=== PATIENT | male | born 1965 | race Caucasian/White ===

== ENCOUNTER 2023-12-27 08:56 | Outpatient (REF) | payer OTHER, SELFPAY | END 2023-12-27 08:57 | disposition home or self-care (01) | LOC: HO.HOSX 08:56 | PROVIDERS: Visit Provider Physician Assistant | DX: Z13.89 Encounter for screening for other disorder (principal) ==

== ENCOUNTER 2024-01-26 09:23 | Outpatient (REF) | payer OTHER, SELFPAY ==
--- NOTE | ~2024-01-26 | XR_ITS ---
EXAMINATION: XR SHOULDER LEFT CLINICAL INFORMATION: Pain in unspecified shoulder M25.519. COMPARISON: None available. TECHNIQUE: Two views of the left shoulder. FINDINGS: Normal bone mineralization. No fracture, dislocation, or suspicious bone lesion. Normal alignment. Subacromial space is preserved. Mild to moderate osteoarthritis in the glenohumeral joint with small undersurface spurs. Mild to moderate osteoarthritis in the AC joint with minimal undersurface and more predominant superior surface spurring. No outlet impingement. Remainder of the bony and soft tissue structures appear normal. XR/XR shoulder LT min 2V IMPRESSION: 1. No acute bony abnormalities. 2. Mild to moderate osteoarthrosis of the glenohumeral joint and AC joint. Electronically signed by: Paul Padron MD 02/10/2024 08:40 AM YAMILKA
== END 2024-01-26 09:24 | disposition home or self-care (01) ==
LOC: HO.HOSX 09:23
PROVIDERS: Visit Provider Orthopaedic Surgery
DX: M25.512 Pain in left shoulder (principal)
CPT/HCPCS: 73030; 99202

== ENCOUNTER 2024-01-26 11:08 | Outpatient (AMB) | payer OTHER, SELFPAY ==
--- NOTE | 2024-01-26 11:21 | MHC.OFFVIS ---
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 The patient describes his pain as sharp in nature. The patient states that he has been doing a fair amount of heavy lifting with his left arm because he has been recovering from right shoulder surgery performed by another provider earlier this year. He has had cortisone injections in the past which gave him minimal relief. He has also tried Tylenol and ibuprofen which gave him only mild relief. He has done physical therapy which aggravated his pain. Allergies No Known Allergies Allergy (Verified 01/26/24 11:22) Medication List - Last Reconciled 01/26/24 by Brody Escobar MD ibuprofen 800 mg PO Q12H PRN PFSH Social History (Updated 01/26/24 @ 11:24 by MANJULA Manrique) Alcohol intake: never Patient Tobacco Use Status: Former Tobacco user Current occupational status: unemployed Physical Exam Vital Signs: BMI result Body Mass Index 29.1 Const Other: Well-nourished well-developed very friendly male awake alert and oriented x3 in no acute distress Extrem Other: Bilateral upper extremity examination shows good capillary refill, no skin lesions noted, normal sensation light touch Left shoulder examination shows slightly decreased range of motion when compared to his right shoulder, 4+ out of 5 strength with supraspinatus testing, positive impingement signs, tenderness over his acromioclavicular joint, no instability Results Reviewed Results Reviewed: X-rays of the patient's left shoulder show severe acromioclavicular joint narrowing, a type 2 acromion, no acute bony abnormalities Assessment & Plan Assessment & Plan (1) Left shoulder pain: Code(s): M25.512 - Pain in left shoulder Category: Medical Plan Mr. Ménedz presents with progressively worsening left shoulder pain and weakness due to impingement syndrome and possible rotator cuff tearing. Thus, I will send the patient for an MRI of his left shoulder for further evaluation. I will see him back once the MRI is completed to discuss the findings and treatment options. Feel free to call me at any time should questions regarding his orthopedic management arise. Thank you very much for asking me to see this very friendly gentleman. I spent 22 minutes in reviewing the patient's records and imaging studies, seeing the patient and documenting in the medical record. Orders: Orders XR shoulder LT min 2V Today M25.519 - Pain in unspecified shoulder MR shoulder LT wo con Today M25.512 - Pain in left shoulder Coding Level of Care Code New Pt Level 3 (07567) Complex EM visit Add On G2211 Diagnoses Left shoulder pain M25.512
[2024-01-26 11:22] VITALS: BMI 29.1
--- OUTSIDE RECORDS SUMMARY | 2024-02-01 01:50 | XMS_ITS | Continuity of Care Document ---
Author Organization [facility] Darlene elizabeth Office Address [address] [place] [address] Care Team Providers Care Steamtable Worker Name Role Phone PIA BRANTLEY Primary Care Provider RUSH RAYO Reservations And Ticketing Agent Assessment No assessment recorded. Plan of Treatment Reminders Order Date Submit Date Provider Last Modified By Organization Details Last Modified Time Details Appointments WC Post-Op 2023 11:40A M BANDAR GALLARDO MD Not available Not available Not available Lab None recorded. Referral physical therapist referral - S/P Right Shoulder Arthrosco py 07/27/232023 1105 024 [email or web address] [facility], [address] [place] [address], [id number], 01/02/2024 11:51:46 Procedures None recorded. Surgeries None recorded. Imaging None recorded. Medication Orders None recorded. Patient TargetsNo targets recorded. Patient InstructionsNo instructions recorded. Reason for Referral Physical Therapist Referral for Shoulder pain POST OP REHAB S/P Right Shoulder Arthroscopy 07/27/23 IF BICEP TENODESIS: NO ACTIVE ELBOW FLEXION X 3WEEKS NO RESISITED ELBOW FLEXION X 8 WEEKS Referring Physician: Bandar Gallardo, Orthopedic Surgery, Encounter Date: 12/27/2023 Procedures Surgical History Date Name Laterality Status Provider Name and Address Organization Details Recorded Time 4 Orthopaedic Surgery completed Ellie Gonzales [facility] 08/09/2023 09:21:38 9 Orthopaedic Surgery completed Ellie Gonzales [facility] 12/21/2022 09:26:02 Imaging Results None recorded. Procedure Notes None recorded. Medical Equipment None Reported. Allergies No known drug allergies Medications Name Sig Start Date Stop Date Status Note LastModified by Organization Details LastModified Time ibuprofen 800 mg tablet TAKE 1 TABLET TWICE A DAY BY ORAL ROUTE NEEDED. active Not Available Not Available No t Available Medrol (Julio Cesar) 4 mg tablets in a dose pack 1 pack use as directed 2022 active Not Available Not Available Not Avai lable Kenalog 40 mg/mL suspensio n for injection Take 2 mL by injectio n route. 2023 active US Guided Not Available Not Available Not Available Percocet 5 mg-325 mg tablet 1 tabs PO Q 4-6 hours prn pain 09/05 completed POST OP PAIN MEDICATI ON Not Available Not Available Not Available naproxen active Not Available Not Avai lable Not Available Tylenol active prn Not Available Not Avail able Not Available Vitals Date Recorded Body height Provider Name an d Address Organization Details Last Updated DateTime 12/27/2023 175.26 cm Sandra Kings [facility] 12/27/2023 11:31:04 Social History Question Answer Notes LastModified by Organizat ion Details LastModified Time Tobacco Smoking Status Never Smoker [facility] 12/21/2022 09:25:14 What Is Your Level Of Alcohol Consumption? None Information not available 10/18/2023 Do You Or Have You Ever Used E-cigarettes Or Vape? 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 Information not available 12/21/2022 Do You Or Have You Ever Used Smokeless Tobacco? [id number] Information not available 12/21/2022 Sex: Unknown Functional Status Question Answer Note LastModified by Organization D etails LastModified Time What is your exercise level? None Information not available 10/18/2023 Mental Status None recorded. Family History Relationship Description Onset Age of this Age Resolved Age Notes LastModified by Organization Details LastModified Time Father No current problems or disability [email or web address] Not available 10/17 13:07:25 Mother No current problems or disability [email or web address] Not available 10/17 13:07:26 Medical History Condition Response HIV or AIDS N High Blood Pressure N Irregular Heartbeat N MRSA N Any Other Significant Medical Issues N Weight Gain / Loss N Hearing Loss N Angina, Heart Failure or Attack N Night Sweats N Seizures / Epilepsy N Osteoarthritis / Rheumatoid arthritis / Other N Cancer N Stroke N Ulcer / Stomach Bleeding / Indigestion N Visual Loss or Glaucoma N Blood Clots / Phlebitis N Heart Problems N Depression or Anxiety N Emphysema / Chronic Bronchitis N Reaction to General/Local Anesthesia N Hepatitis / Jaundice N Kidney / Bladder Infections N Diabetes N Bleeding Disorder N Chemical Dependency / Alcoholism N Psoriasis / Skin Rash N Thyroid Disorder N Heart Disease N Asthma / Shortness of Breath / Sleep [employer] (please specify) N Pulmonary Embolism N Past Encounters Encounter ID Performer Location Encounter Start Date Encounter Closed Date Diagnosis/Indication Diagnosis SNOMED-CT Code Diagnosis ICD10 Code [id number] BANDAR GALLARDO MD [place] [facility] [address] [place] [id number] 12/27/2023 10:08:36 12/27/2023 12:38:24 Impingement syndrome of right shoulder region 3303366974 86368 M75.41 Bursitis o f right shoulder 9155428761 36387 M75.51 Shoulder pain 69441532 M 25.013 [id number] ROLF HYMAN [place] [facility] [address] [place] [address] 12/27/2023 12:34:05 12/27/2023 13:37:39 Pain of right shoulder joint 7006405609 9985682 M25.511 Health Concerns Section Related Observation LastModified by Organization Detai ls LastModified Time None Recorded Concern Status LastModified by Organization Details LastModified Time None Recorded Payers Encounter Date Sequence Insurance Name Policy Number Policy Boyce Covered Member ID Boyce Member ID Guarantor Name 12/27/2023 Sarbari Unknown Marito Méndez Notes Date Note Type Note Provider Name and Address Organization Details Recorded Time 12/27/2023 text/html Patients present s today for RIGHT shoulder injection. I confirmed that the patient does not have a history of prior adverse reactions, active infections, or relevant allergies. There was no erythema or warmth, and the skin was clear. After discussion of the risks including, but not limited to infection, localized soreness and swelling, reaction to medications, the patient consented to proceeding with the injection.Under sterile conditions with the use of alcohol and Betadine prep on the RIGHT shoulder and ethyl chloride spray on the skin, I applied sterile ultrasound gel and utilized the [employer] [facility] to ensure accurate needle placement. Topical anesthesia was achieved by use of ethyl chloride spray, followed by the placement of 2 cc of Kenalog, and 2 cc of 2% lidocaine into the glenohumeral joint and subacromial space without incident. Ultrasound images were scanned into the patient's chart. The injection was completed without complication and a Band-Aid was applied. The patient tolerated the procedure well and was instructed to avoid strenuous activity for the next 24-48 hours and use ice, NSAIDs, or Tylenol for pain as needed. ROLF HYMAN [address] [place] [address], [phone], [facility] 12/27/2023 15:36:42 12/27/2023 text/html Bill comes in today. He has been making good progress to about 2 weeks ago. The pain increased in severity in the shoulder. For some reason, he was not getting physical therapy, so that is the problem. Clinically, he what appears to be some recurrent bursitis so let us do a cortisone shot, wait a week, back in physical therapy to work on posture and strength, out of work. Recheck in 6 weeks. BANDAR GALLARDO MD [address] [place] [address], [phone], [facility] 12/28/2023 12:07:03
--- OUTSIDE RECORDS SUMMARY | 2024-02-01 01:50 | XMS_ITS | Data Portability ---
Author Organization [place] [facility] Address [address] [place] [address] Care Team Providers Care Analysis Consultant Name Role Phone PIA BRANTLEY Primary Care Provider [phone] PERRI BEVERLY Photogrammetric Tech [phone] Assessment No assessment recorded. Plan of Treatment Reminders Order Date Submit Date Provider Last Modified By Organization Details Last Modified Time Details Appointments Post-Op 2023 11:40A M BANDAR GALLARDO MD Not available Not available Not available Lab None recorded. Referral physical therapist referral - S/P RT Shoulder Arthrosco py, SAD 2023 024 [email or web address] [facility], [address] [place] [address], [id number], 09/07/2023 12:11:51 physical therapist referral - S/P Shoulder Arthrosco py-Right Shoulder 2023 024 [email or web address] [facility], [address] [place] [address], [address], 10/19/2023 08:25:43 physical therapist referral - S/P Shoulder Arthrosco py 2023 024 [email or web address] Not available 11/19/2023 12:14:13 physical therapist referral - S/P Shoulder Arthrosco py-Right Shoulder 2023 024 [email or web address] [facility], [address] [place] [address], [id number], 11/16/2023 10:55:02 physical therapist referral - S/P Right Shoulder Arthrosco py 07/27/2320232 024 [email or web address] [facility], [address] [facility], [place], [address], 01/02/2024 11:51:46 Procedures None recorded. Surgeries None recorded. Imaging None recorded. Medication Orders Kenalog 40 mg/mL suspensio n for injection [facility]23 [id number], [address] [place], [address], 12/27/2023 17:13:17 Patient TargetsNo targets recorded. Patient InstructionsNo instructions recorded. Reason for Referral Physical Therapist Referral for Impingement syndrome of right shoulder region POST OP REHAB S/P RT Shoulder Arthroscopy, SAD IF BICEP TENODESIS: NO ACTIVE ELBOW FLEXION X 3WEEKS NO RESISITED ELBOW FLEXION X 8 WEEKS Referring Physician: Bandar Gallardo, Orthopedic Surgery, Encounter Date: 09/06/2023 Physical Therapist Referral for Bone spur of right shoulder POST OP REHAB S/P Shoulder Arthroscopy IF BICEP TENODESIS: NO ACTIVE ELBOW FLEXION X 3WEEKS NO RESISITED ELBOW FLEXION X 8 WEEKS Referring Physician: Bandar Gallardo, Orthopedic Surgery, Encounter Date: 10/18/2023 Physical Therapist Referral for Bursitis of right shoulder POST OP REHAB S/P Shoulder Arthroscopy-Right Shoulder IF BICEP TENODESIS: NO ACTIVE ELBOW FLEXION X 3WEEKS NO RESISITED ELBOW FLEXION X 8 WEEKS Referring Physician: Bandar Gallardo, Orthopedic Surgery, Encounter Date: 10/18/2023 Physical Therapist Referral for Bone spur of right shoulder POST OP REHAB S/P Shoulder Arthroscopy-Right Shoulder IF BICEP TENODESIS: NO ACTIVE ELBOW FLEXION X 3WEEKS NO RESISITED ELBOW FLEXION X 8 WEEKS Referring Physician: Bandar Gallardo, Orthopedic Surgery, Encounter Date: 11/15/2023 Physical Therapist Referral for Shoulder pain POST OP REHAB S/P Right Shoulder Arthroscopy 07/27/23 IF BICEP TENODESIS: NO ACTIVE ELBOW FLEXION X 3WEEKS NO RESISITED ELBOW FLEXION X 8 WEEKS Referring Physician: Bandar Gallardo, Orthopedic Surgery, Encounter Date: 12/27/2023 Procedures Surgical History Date Name Laterality Status Provider Name and Address Organization Details Recorded Time Orthopaedic Surgery completed Ellie Gonzales [facility] 08/09/2023 09:21:38 9 Orthopaedic Surgery completed Ellie Gonzales [facility] 12/21/2022 09:26:02 Imaging [...] d Address Organization Details Last Updated DateTime 09/06/2023 175.26 cm Jerad Parson [facility] 09/06/2023 11:15:02 Date Recorded Body height Body mass index (BMI) Body weight Provider Name and Address Organization Details Last Updated DateTime 10/18/2023 175.26 cm 30.9 kg/m2 61749.81 g Sandra [facility] 10/18/2023 13:04:57 Date Recorded Body height Provider Name an d Address Organization Details Last Updated DateTime 11/15/2023 175.26 cm Sandra Ku [facility] 11/15/2023 09:54:05 Date Recorded Body height Provider Name an d Address Organization Details Last Updated DateTime 12/27/2023 175.26 cm Sandra Ku [facility] 12/27/2023 11:31:04 Social History Question Answer Notes LastModified by Organizat ion Details LastModified Time Tobacco Smoking Status Never Smoker Ellie Gonzales [facility] 12/21/2022 09:25:14 What Is Your Level Of Alcohol Consumption? None Information not available 10/18/2023 Do You Or Have You Ever Used E-cigarettes Or Vape? 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 Information not available 12/21/2022 Do You Or Have You Ever Used Smokeless Tobacco? [id number] Information not available 12/21/2022 Sex: Unknown Functional [...] available 10/17 13:07:26 Medical History Condition Response Blood Clots / Phlebitis N HIV or AIDS N Heart Problems N High Blood Pressure N Depression or Anxiety N Irregular Heartbeat N MRSA N Emphysema / Chronic Bronchitis N Any Other Significant Medical Issues N Reaction to General/Local Anesthesia N Weight Gain / Loss N Hepatitis / Jaundice N Kidney / Bladder Infections N Diabetes N Bleeding Disorder N Hearing Loss N Angina, Heart Failure or Attack N Seizures / Epilepsy N Night Sweats N Osteoarthritis / Rheumatoid arthritis / Other N Cancer N Stroke N Chemical Dependency / Alcoholism N Ulcer / Stomach Bleeding / Indigestion N Visual Loss or Glaucoma N Thyroid Disorder N Psoriasis / Skin Rash N Heart Disease N Pulmonary Embolism N Asthma / Shortness of Breath / Sleep [employer] Sty[employer] ea (please specify) N Past Encounters Encounter ID Performer Location Encounter Start Date Encounter Closed Date Diagnosis/Indication Diagnosis SNOMED-CT Code Diagnosis ICD10 Code [id number] [facility] [address] [address] 12/21/2022 07:59:29 12/21/2022 10:33:56 Traumatic rupture of right glenoid labrum 1087690030 3443269 S43.431A Shoulder pain 75016202 M 25.338 [id number] [place] [facility] [address] [address] 03/08/2023 08:44:47 03/08/2023 12:03:43 Shoulder pain 76806833 M25.519 Bursitis o f right shoulder 5510381401 21755 M75.51 Bone spur of right shoulder 0707636618 31798 M25.196 [id number] BANDRA GALLARDO MD [address] [address] 03/15/2023 16:21:17 03/15/2023 17:53:30 Shoulder pain 70552309 M25.450 [id number] BANDAR GALLARDO MD [place] [facility] [address] [address] 04/26/2023 07:57:10 04/26/2023 10:38:09 Bursitis of right shoulder 3348076723 73072 M75.51 Impingemen t syndrome of right shoulder region 6728015549 57378 M75.41 Pain of ri ght shoulder joint 7196255814 1450910 M25.383 [id number] ROLF HYMAN [place] [facility] [address] [address] 04/26/2023 10:30:08 04/26/2023 11:08:52 Bursitis of right shoulder 0067499299 48147 M75.51 Bone spur of right shoulder 7229112012 00962 M25.711 Impingemen t syndrome of right shoulder region 9788716441 01657 M75.41 Pain of ri ght shoulder joint 2347104201 2462130 M25.511 Rupture of rotator cuff of right shoulder 7561713488 1861224 M75.605 [id number] ROLF HYMAN [place] [facility] [address] [address] 06/28/2023 09:15:23 06/28/2023 10:41:04 Bursitis of right shoulder 1962855156 56881 M75.51 Bone spur of right shoulder 8881783395 62185 M25.711 Impingemen t syndrome of right shoulder region 6401956414 09636 M75.41 Pain of ri ght shoulder joint 0110116204 4685529 M25.519 [id number] ROLF HYMAN [place] [facility] [address] [place] [address] 08/09/2023 09:18:46 08/09/2023 12:03:38 Shoulder pain 18995214 M25.519 Impingemen t syndrome of right shoulder region 0775878883 30934 M75.41 Bursitis o f right shoulder 1788731780 68746 M75.51 [id number] BANDAR GALLARDO MD [place] [facility] [address] [place] [address] 09/06/2023 10:02:18 09/06/2023 11:36:21 Impingement syndrome of right shoulder region 2670928754 17384 M75.41 Shoulder pain 37987771 M 25.511 Bone spur of right shoulder 0391385158 21327 M25.711 Bursitis o f right shoulder 6687454904 04100 M75.51 Pain of ri ght shoulder joint 9502609819 7647773 M25.563 [id number] BANDAR GALLARDO MD [place] [facility] [address] [facility] [address] 10/18/2023 12:45:01 10/18/2023 13:27:49 Bursitis of right shoulder 6293087297 62103 M75.51 Bone spur of right shoulder 2178748589 96044 M25.711 Impingemen t syndrome of right shoulder region 5970709045 96444 M75.41 Pain of ri ght shoulder joint 3707444898 7371455 M25.511 Shoulder pain 36080698 M 25.396 [id number] BANDAR GALLARDO MD [place] [facility] [address] [facility] [address] 11/15/2023 09:36:19 11/15/2023 10:24:19 Bursitis of right shoulder 0660144402 78232 M75.51 Bone spur of right shoulder 7526873359 58941 M25.711 Impingemen t syndrome of right shoulder region 5862089051 25365 M75.41 Pain of ri ght shoulder joint 4661174636 3528593 M25.035 [id number] BANDAR GALLARDO MD [place] [facility] [address] [facility] [place] [address] 12/27/2023 10:08:36 12/27/2023 12:38:24 Impingement syndrome of right shoulder region 1173992240 51908 M75.41 Bursitis o f right shoulder 7197021414 91832 M75.51 Shoulder pain 39805458 M 25.472 [id number] ROLF HYMAN [place] [facility] [address] [facility] [place] [address] 12/27/2023 12:34:05 12/27/2023 13:37:39 Pain of right shoulder joint 6904688594 5281555 M25.511 Health Concerns Section Related Observation LastModified by Organization Detai ls LastModified Time None Recorded Concern Status LastModified by Organization Details LastModified Time None Recorded Advance Directives Directive None Recorded Payers Encounter Date Sequence Insurance Name Policy Number Policy Boyce Covered Member ID Boyce Member ID Guarantor Name 09/06/2023 [employer] Unknown Marito SpecifiedBybrent 10/18/2023 [employer] Unknown Marito Méndez 11/15/2023 [employer] Unknown Marito Méndez 12/27/2023 [employer] Unknown Marito SpecifiedBybrent 12/27/2023 [employer] Unknown Marito Méndez Notes Date Note Type Note Provider Name and Address Organization Details Recorded Time 09/06/2023 text/html Marito comes in today, he is doing okay. He has a little bit of pain when he elevates, but his motion is actually fairly good. He has not done any strengthening yet, so he is going to ways to go. He also has some rhomboid pain, so let us give him into PT, modalities, massage and strengthening and I will recheck him in 6 weeks, he is out of work. BANDAR GALLARDO MD [address] [place] [address], [place], [phone], [facility] 09/07/2023 12:10:06 10/18/2023 text/html Marito comes in today doing okay. ??Motion is improving. ??Strength is still lacking here, so he still has ways to go. ?? He has a very difficult job, so let us continue physical therapy, out of work. ??Recheck in 5 weeks. BANDAR GALLARDO MD [address] [place] [address], [phone], [facility] 11/10/2023 17:01:55 11/15/2023 text/html Patient presents status post decompression in July. He is having issues with routine. He is out of work. On exam he has 140 and elevation, impingement positive impingement test decent power neurovascular is intact. He needs to continue doing PT 1 or 2 times a week he is out of work we will see him back in 6 weeks BANDAR GALLARDO MD [address] [place] [address], [phone], [facility] 11/16/2023 12:53:40 12/27/2023 text/html Patients present s today for [...] applied sterile ultrasound gel and utilized the [email or web address] Ultrasound to ensure accurate needle placement. Topical [...] Tylenol for pain as needed. ROLF HYMAN [address] [facility], [place], [address], [facility] 12/27/2023 15:36:42 12/27/2023 text/html [...] Recheck in 6 weeks. BANDAR GALLARDO MD [address] [place] [address], [phone], [facility] 12/28/2023 12:07:03
--- OUTSIDE RECORDS SUMMARY | 2024-02-01 01:50 | XMS_ITS | Continuity of Care Document ---
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 Plan of Treatment Reminders Order Date Submit Date Provider Last Modified By Organization Details Last Modified Time Details Appointments WC Post-Op 2023 11:40A M BANDAR GALLARDO MD Not available Not available Not available Lab None recorded. Referral physical therapist referral - S/P Shoulder Arthrosco py-Right Shoulder 2023 0924 024 [email or web address] [facility], [address] [place] [address], [id number], 11/16/2023 10:55:02 Procedures None recorded. Surgeries None recorded. Imaging None recorded. Medication Orders None recorded. Patient TargetsNo targets recorded. Patient InstructionsNo instructions recorded. Reason for Referral Physical Therapist Referral for Bone spur of right shoulder POST OP REHAB S/P Shoulder Arthroscopy-Right Shoulder IF BICEP TENODESIS: NO ACTIVE ELBOW FLEXION X 3WEEKS NO RESISITED ELBOW FLEXION X 8 WEEKS Referring Physician: Bandar Gallardo, Orthopedic Surgery, Encounter Date: 11/15/2023 Procedures Surgical History Date Name Laterality Status Provider Name and Address Organization Details Recorded Time 4 Orthopaedic Surgery completed Ellie Gonzales [facility] 08/09/2023 09:21:38 9 Orthopaedic Surgery completed Ellie Gonzales [facility] 12/21/2022 09:26:02 Imaging [...] Updated DateTime 11/15/2023 175.26 cm Sandra Ku [facility] 11/15/2023 09:54:05 Social History Question Answer Notes LastModified by Organizat ion Details LastModified Time Tobacco Smoking Status [facility] 12/21/2022 09:25:14 What Is Your Level Of Alcohol Consumption? None Information not available 10/18/2023 Do You Or Have You Ever Used E-cigarettes Or Vape? Never Used Electronic Cigarettes Information not available 12/21/2022 What Is Your Occupation? [employer]. Information not available 12/21/2022 Do You Or Have You Ever Used Smokeless Tobacco? [id number] Information not available 12/21/2022 Sex: Unknown Functional [...] Asthma / Shortness of Breath / Sleep Proc Tech ea (please specify) N Past Encounters Encounter ID Performer Location Encounter Start Date Encounter Closed Date Diagnosis/Indication Diagnosis SNOMED-CT Code Diagnosis ICD10 Code [id number] BANDAR GALLARDO MD [place] [facility] [place] [address] [address] 10/18/2023 12:45:01 10/18/2023 13:27:49 Bursitis of right shoulder [id number] 42658 M75.51 Bone spur of right shoulder 0717632705 70058 M25.711 Impingemen t syndrome of right shoulder region 8618622395 59096 M75.41 Pain of ri ght shoulder joint 9379645676 3330507 M25.511 Shoulder pain 43737880 M 25.884 [id number] BANDAR GALLARDO MD [place] [facility] [facility] [employer] [place] [address] [address] 11/15/2023 09:36:19 11/15/2023 10:24:19 Bursitis of right shoulder [id number] 76752 M75.51 Bone spur of right shoulder 0526805190 87879 M25.711 Impingemen t syndrome of right shoulder region 4101877477 23406 M75.41 Pain of ri ght shoulder joint 5390233893 8026654 M25.511 Health Concerns Section Related Observation LastModified by Organization Detai ls LastModified Time None Recorded Concern Status LastModified by Organization Details LastModified Time None Recorded Payers Encounter Date Sequence Insurance Name Policy Number Policy Boyce Covered Member ID Boyce Member ID Guarantor Name 11/15/2023 [employer] Unknown Marito Honey Notes Date Note Type Note Provider Name and Address Organization Details Recorded Time 11/15/2023 text/html Patient presents status post decompression [...] back in 6 weeks BANDAR GALLARDO MD [address] [place] [address], [phone], [facility] 11/16/2023 12:53:40
--- OUTSIDE RECORDS SUMMARY | 2024-02-01 01:50 | XMS_ITS | Continuity of Care Document ---
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 Plan of Treatment Reminders Order Date Submit Date Provider Last Modified By Organization Details Last Modified Time Details Appointments WC Post-Op 2023 11:40A M REBEKA LAM MD Not available Not available Not available Lab None recorded. Referral None recorded. Procedures None recorded. Surgeries None recorded. Imaging None recorded. Medication Orders Kenalog 40 mg/mL suspensio n for injection [facility]23 [id number], [address] [facility], [place], [address], 12/27/2023 17:13:17 Patient TargetsNo targets recorded. Patient InstructionsNo instructions recorded. Reason for Referral None Reported. Procedures Surgical History Date Name Laterality Status Provider Name and Address Organization Details Recorded Time 4 Orthopaedic Surgery completed Ellie Gonzales [facility] 08/09/2023 09:21:38 9 Orthopaedic Surgery completed Ellie Gonzales [facility] 12/21/2022 09:26:02 [...] Updated DateTime 12/27/2023 175.26 cm Sandra Ku [facility] 12/27/2023 11:31:04 Social History Question Answer Notes LastModified by Organizat ion Details LastModified Time Tobacco Smoking Status Never Smoker [facility] 12/21/2022 09:25:14 What Is Your Level Of Alcohol Consumption? None Information not available 10/18/2023 Do You Or Have You Ever Used E-cigarettes Or Vape? 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 Information not available 12/21/2022 Do You Or Have You Ever Used Smokeless Tobacco? [id number] Information not available 12/21/2022 Sex: Unknown Functional [...] Disorder N Chemical Dependency / Alcoholism N Thyroid Disorder N Psoriasis / Skin Rash N Heart Disease N Pulmonary Embolism N Asthma / Shortness of Breath / Sleep Concrete Block Mason ea (please specify) N Past Encounters Encounter ID Performer Location Encounter Start Date Encounter Closed Date Diagnosis/Indication Diagnosis SNOMED-CT Code Diagnosis ICD10 Code [id number] REBEKA LAM MD [place] [facility] [address] [facility] [place] [address] 12/27/2023 10:08:36 12/27/2023 12:38:24 Impingement syndrome of right shoulder region 8751231852 22944 M75.41 Bursitis o f right shoulder 3056814391 54290 M75.51 Shoulder pain 51997626 M 25.387 [id number] ROLF HYMAN [place] [facility] [address] [place] [address] 12/27/2023 12:34:05 12/27/2023 13:37:39 Pain of right shoulder joint 3955153808 4963355 M25.511 Health Concerns Section Related Observation LastModified by Organization Detai ls LastModified Time None Recorded Concern Status LastModified by Organization Details LastModified Time None Recorded Payers Encounter Date Sequence Insurance Name Policy Number Policy Boyce Covered Member ID Boyce Member ID Guarantor Name 12/27/2023 [employer] Unknown Marito Méndez Notes Date Note Type [...] applied sterile ultrasound gel and utilized the [employer] Ul[employer]ound to ensure accurate needle placement. Topical [...] Tylenol for pain as needed. ROLF HYMAN [address] [place] [address], [phone], [facility] 12/27/2023 15:36:42 12/27/2023 [...] out of work. Recheck in 6 weeks. REBEKA LAM MD [address] [place] [address], [phone], [facility] 12/28/2023 12:07:03
== END 2024-01-26 11:48 | disposition home or self-care (01) ==
PROVIDERS: PCP Internal Medicine; Visit Provider Orthopaedic Surgery
DX: M25.512 Pain in left shoulder (principal)
CPT/HCPCS: 99203; G2211

== ENCOUNTER → 2024-01-26 11:11 | Outpatient (BNV) | payer OTHER, SELFPAY | PROVIDERS: Visit Provider Radiology Diagnostic Radiology | DX: M25.511 Pain in right shoulder (principal); M19.011 Primary osteoarthritis, right shoulder | CPT/HCPCS: 73030 ==

== ENCOUNTER 2024-11-28 13:04 | Outpatient (AMB) | payer MEDICAID, SELFPAY ==
--- NOTE | 2024-11-28 13:09 | MHC.OFFVIS ---
Intake Visit Reasons: Elevated PSA Intake Note: New Patient is present for elevated PSA Urology Rx:none Blood Thinners:none Imaging completed: none Labs done 03/20/24 : Total PSA 5.2 & 10/01/24 Total PSA 4.2 System Archive Analyst Required: No Accompanied by: Self / Same As Patient Allergies No Known Allergies Allergy (Verified 11/28/24 13:14) HPI Comments Details: Marito is a pleasant male. He is a patient of Dr. Coats. He is seen for the following urologic conditions - elevated PSA - lower urinary tract symptoms Trial dutasteride Bladder ultrasound 4 month follow-up Elevated PSA PSA - March 17 total 5.2 10% free, October 15 4.2 14% free Family history of prostate cancer - uncle maternal Lower urinary tract symptoms Primarily obstructive in nature Weakness of stream Nocturia Progressive over past few years PFS Social History (Updated 01/26/24 @ 11:24 by MANJULA Manrique) Alcohol intake: never Patient Tobacco Use Status: Former Tobacco user Current occupational status: unemployed Review of Systems Const Denies chills and Denies fever(s) Card Reports no additional complaints and Denies syncope Resp Denies cough GI Denies abdominal pain and Denies heartburn Reports as per HPI and Denies change in libido Neuro Denies syncope Psych Denies change in libido Endo Denies change in libido Physical Exam Const General: cooperative, healthy appearing, comfortable and no acute distress Orientation/consciousness: patient oriented x3 HEENT Face and sinus: Yes normal facial exam Mouth: moist mucous membranes Neck Neck: Yes normal visual inspection, Yes full ROM and Yes trachea midline Chest Chest palpation & inspection: normal inspection of the chest Resp Effort & Inspection: normal respiratory effort, able to speak in complete sentences and no respiratory distress GI Inspection: Yes normal to inspection Back/Spine/Pelvis Cervical Spine: normal cervical lordosis Thoracic/Lumbar Spine: thoracic and lumbar spine normal to inspection Skin General skin exam: no rashes or lesions noted Neuro General: patient oriented x3, gait normal, tone normal and moves all extremities Extrem General: Yes normal to inspection and Yes capillary refill normal Assessment & Plan Assessment & Plan (1) Elevated PSA: Code(s): R97.20 - Elevated prostate specific antigen [PSA] Category: Medical (2) Bladder outlet obstruction: Code(s): N32.0 - Bladder-neck obstruction Category: Medical (3) Nocturia associated with benign prostatic hyperplasia: Code(s): N40.1 - Benign prostatic hyperplasia with lower urinary tract symptoms; R35.1 - Nocturia Category: Medical Plan Four month follow-up PSA Bladder ultrasound Orders: Orders PSA,Total (Free>4and<10) 4 Months R97.20 - Elevated prostate specific antigen [PSA] US bladder Today R97.20 - Elevated prostate specific antigen [PSA] Medications: New dutasteride 0.5 mg PO DAILY 90 caps 1RF 90 days R97.20 - Elevated prostate specific antigen [PSA] Patient Instructions: This note is constructed using voice recognition software. While every effort has been made to ensure accuracy medical assembly errors may have been included. Imaging studies, laboratory and physical exam results were discussed and reviewed in detail. No major barriers to patient understanding were identified. An opportunity to ask questions regarding the treatment plan was provided. All questions were answered. The patient expressed understanding and agreement with the above treatment plan. The patient is aware they should contact our office by phone for worsening of their current condition or the appearance of new urologic symptoms. Compliance is encouraged with any medications and followup testing that is ordered. It is a privilege to participate in the urologic care of your patient. If you have any questions or concerns regarding treatment for the above conditions, or other urologic issues, please do not hesitate to contact me. The office telephone contact is [phone]. Sincerely, Dr Kenan Felix MD, ROLANDO [facility] - Urology Compassionate Specialist Care for the Genitourinary System Coding Level of Care Code New Pt Level 4 (71342) Diagnoses Elevated PSA R97.20 Bladder outlet obstruction N32.0 Nocturia associated with benign prostatic hyperplasia N40.1; R35.1
== END 2024-11-28 13:50 | disposition home or self-care (01) ==
LOC: HO.HUSH 13:05
PROVIDERS: PCP Physician Assistant; Visit Provider Urology
DX: R97.20 Elevated prostate specific antigen [PSA] (principal); N32.0 Bladder-neck obstruction; N40.1 Benign prostatic hyperplasia with lower urinary tract symptoms; R35.1 Nocturia; Z13.9 Encounter for screening, unspecified
CPT/HCPCS: 99204

== ENCOUNTER → 2024-11-28 13:04 | Outpatient (BNVA) | payer MEDICAID, SELFPAY | PROVIDERS: PCP Physician Assistant; Visit Provider Urology | DX: N40.1 Benign prostatic hyperplasia with lower urinary tract symptoms (principal); R35.1 Nocturia; N32.0 Bladder-neck obstruction; R97.20 Elevated prostate specific antigen [PSA] | CPT/HCPCS: 81003; 99202 ==